=== PATIENT | female | born 1955 | race Asian ===

== ENCOUNTER 2017-09-16 18:28 | Emergency (ER) | payer OTHER ==
[~2017-09-16] VITALS: Ht 152.4 cm; Wt 49.9 kg
[~2017-09-16 18:28] MED LIST: SITA50TA13
[2017-09-17 00:52] VITALS: BP 133/81
[2017-09-17] MEDS: HYDROcodone-ACET 5/325MG TAB PO ONE (02:18)
== END 2017-09-17 02:29 | disposition home or self-care (01) ==
LOC: ER 18:28
DX: S01.01XA Laceration without foreign body of scalp, initial encounter (principal); S00.03XA Contusion of scalp, initial encounter; E11.9 Type 2 diabetes mellitus without complications; I10 Essential (primary) hypertension; W22.8XXA Striking against or struck by other objects, initial encounter; Y93.89 Activity, other specified; Y99.8 Other external cause status; Y92.89 Other specified places as the place of occurrence of the external cause
CPT/HCPCS: 12002

== ENCOUNTER 2017-09-25 08:17 | Emergency (ER) | payer BC, OTHER ==
[~2017-09-25] VITALS: Ht 152.4 cm; Wt 49.0 kg
[2017-09-25 08:25] VITALS: BP 137/83
== END 2017-09-25 08:47 | disposition home or self-care (01) ==
LOC: ER 08:17
DX: S01.01XD Laceration without foreign body of scalp, subsequent encounter (principal); E11.9 Type 2 diabetes mellitus without complications; E78.00 Pure hypercholesterolemia, unspecified; I10 Essential (primary) hypertension; X58.XXXD Exposure to other specified factors, subsequent encounter